=== PATIENT | female | born 1985 ===

== ENCOUNTER → 2024-01-06 11:22 | Outpatient (REF) | payer OTHER, SELFPAY | LOC: HWRAD 11:22 | PROVIDERS: ATTENDING PHYSICIAN Chiropractor; FAMILY PHYSICIAN Family Medicine | DX: S13.4XXA Sprain of ligaments of cervical spine, initial encounter (principal); S33.5XXA Sprain of ligaments of lumbar spine, initial encounter; S33.6XXA Sprain of sacroiliac joint, initial encounter | CPT/HCPCS: 72050; 72110 ==